=== PATIENT | female | born 1960 | race Hispanic/Latino ===

== ENCOUNTER 2017-08-27 07:32 | Emergency (ER) | payer OTHER ==
[2017-08-27 07:32] VITALS: BMI 34.4
[2017-08-27 07:47] VITALS: BP 159/114; PULSE 80; RESP 17; TEMP 97.5; O2SAT 97
--- NOTE | 2017-08-27 08:38 | ED PDOC ---
Arrival/HPI - General Chief Complaint: Lower Extremity Problem/Injury Time Seen by Provider: 08/27/17 08:19 Historian: Patient - History of Present Illness Narrative History of Present Illness (Text): 08/27/17 08:31 Jeannette Saba is a 56 year old female, whose past medical history includes osteoarthritis, who presents to the emergency department complaining of sudden onset knee pain and diffuse stiffness to left knee while standing at work yesterday. Patient states that she took a dose of Mobic today which brought little relief. Patient notes that she is unable to straighten her leg but denies any direct trauma and any other complaints at this time. Time/Duration: 24 hours Symptom Onset: Gradual Symptom Course: Unchanged Activities at Onset: Light Context: Home Past Medical History - Provider Review Nursing Documentation Reviewed: Yes - Infectious Disease Hx of Infectious Diseases: None - Tetanus Immunization Tetanus Immunization: Unknown - Cardiac Hx Hypertension: Yes - Gastrointestinal Hx Diverticulitis: Yes Hx Gastroesophageal Reflux: Yes - Genitourinary/Gynecological Hx Genitourinary Disorders: No - Psychiatric Hx Psychophysiologic Disorder: No Hx Substance Use: No - Surgical History Hx Cardiac Catheterization: Yes Hx Section: Yes - Anesthesia Hx Anesthesia Reactions: No - Suicidal Assessment Feels Threatened In Home Enviroment: No Family/Social History - Physician Review Nursing Documentation Reviewed: Yes Family/Social History: No Known Family HX Smoking Status: Current Some Days Smoker Hx Alcohol Use: Yes Hx Substance Use: No Hx Substance Use Treatment: No Allergies/Home Meds Allergies/Adverse Reactions: Allergies vioxx Allergy (Uncoded 08/27/17 07:47) ANGIOEDEMA Home Medications: Home Meds Medication Instructions Recorded Confirmed No Known Home Med 08/27/17 08/27/17 Review of Systems - Review of Systems Constitutional: absent: Fevers, Night Sweats Eyes: absent: Vision Changes ENT: absent: Hearing Changes Respiratory: absent: SOB, Cough Cardiovascular: absent: Chest Pain Gastrointestinal: absent: Abdominal Pain Genitourinary Female: absent: Dysuria Musculoskeletal: Other (Left knee pain) Skin: absent: Rash, Pruritis Neurological: absent: Headache Endocrine: absent: Diaphoresis Hemo/Lymphatic: absent: Adenopathy, Easy Bleeding Physical Exam Vital Signs Reviewed: Yes Vital Signs Temp Pulse Resp BP Pulse Ox 08/27/17 07:45 97.5 F L 80 17 159/114 H 97 Blood Pressure: Hypertensive Pulse: Regular Respiratory Rate: Normal - Systems Exam Head: Present: Atraumatic, Normocephalic Pupils: Present: PERRL Extroacular Muscles: Present: EOMI Conjunctiva: Present: Normal Mouth: Present: Moist Mucous Membranes Neck: Present: Normal Range of Motion Respiratory/Chest: Present: Clear to Auscultation, Good Air Exchange. No: Respiratory Distress, Accessory Muscle Use Cardiovascular: Present: Regular Rate and Rhythm, Normal S1, S2. No: Murmurs Abdomen: Present: Normal Bowel Sounds. No: Tenderness, Distention, Peritoneal Signs Back: Present: Normal Inspection Upper Extremity: Present: Normal Inspection. No: Cyanosis, Edema Lower Extremity: Present: Other (Left knee effusion with positive ballottement; ). No: Erythema Neurological: Present: GCS=15, CN II-XII Intact, Speech Normal Skin: Present: Warm, Dry, Normal Color. No: Rashes Psychiatric: Present: Alert, Oriented x 3, Normal Insight, Normal Concentration Medical Decision Making ED Course and Treatment: 08/27/17 08:55 Impression: 56 year old female complaining of sudden onset knee pain and diffuse stiffness to left knee while standing at work yesterday. Differential Diagnosis included but are not limited to: Non-traumatic Knee Effusion, related to arthritis. Plan: -- Perocet -- Left knee x-ray -- Reassess and disposition Prior Visits: Notes and results from previous visits were reviewed. Patient was last seen in the emergency department on [facility] Notes: 08/27/17 10:19 Left knee x-ray: Creator : Veto Elkins MD FINDINGS: BONES:No fracture. JOINTS:Tricompartmental osteoarthritis most severe in the medial joint compartment. No articular erosion. JOINT EFFUSION:None. OTHER FINDINGS:None. IMPRESSION: Tricompartmental osteoarthritis. - Lab Interpretations Lab Results: Lab Results 08/27/17 10:18: Fluid Type Synovial fluid, Synovial WBC 6071.0 H, Synovial RBC 3399.0 H, Synovial Neutrophils 84.2 H, Synovial Lymphocytes 15.8 H, Synov Monos/ Macrophage TEST NOT PERFORMED, Synovial Fluid Comment Sticky fluid - RAD Interpretation Radiology Orders: 08/27/17 08:31 KNEE LEFT 2 VIEWS (AP & LAT) [RAD] Stat - Medication Orders Current Medication Orders: Discontinued Medications Bupivacaine HCl (Marcaine 0.5%) 5 ml IJ STAT STA Stop: 08/27/17 09:13 Last Admin: 08/27/17 09:48 Dose: 5 ml Comments: Given to ED Physician to administer to patient. Methylprednisolone Acetate (Depo-Medrol) 80 mg INJ ONCE ONE Stop: 08/27/17 09:13 Last Admin: 08/27/17 09:48 Dose: 80 mg Comments: Given to ED physician to administer to pt. Oxycodone/Acetaminophen (Percocet 5/325 Mg Tab) 1 tab PO STAT STA Stop: 08/27/17 08:41 Last Admin: 08/27/17 09:10 Dose: Not Given Non-Admin Reason: Patient Refused - Procedure PROCEDURE NOTE (Text): 08/27/17 12:48 aFTER STERILE PREP,l KNEE ASPIRATED OF APPROX 25CC OF STRAW COLORED FLUID.pT GIVEN INTRAARTICULAR DEPOMEDROL AND BUPIVICAINE.fLIUDS SENT FOR ROUTINE STUDIES INCLUDING CRYSTALS Disposition/Present on Arrival - Present on Arrival Any Indicators Present on Arrival: No History of DVT/PE: No History of Uncontrolled Diabetes: No Urinary Catheter: No History of Decub. Ulcer: No History Surgical Site Infection Following: None - Disposition Have Diagnosis and Disposition been Completed?: Yes Diagnosis: Bursitis of left knee Disposition: HOME/ ROUTINE Disposition Time: 11:36 Patient Plan: Discharge Condition: GOOD Discharge Instructions (ExitCare): Knee Bursitis (ED) Print Language: ICELANDIC Referrals: Sandi Meadows, [Primary Care Provider] - Follow up with primary Alma Lao MD [Staff Provider] - Follow up with primary Forms: [employer] (Thai)
[2017-08-27] MEDS ORDERED: Oxycodone/Acetaminophen 5/325 mg Tab PO STA (08:40)
[2017-08-27] MEDS ORDERED: MethylPREDNISolone Depo 80 mg/ml (5 ml) Inj INJ ONE (09:12)
[2017-08-27] MEDS ORDERED: Bupivacaine 0.5% Inj(30mL) IJ STA (09:12)
--- NOTE | 2017-08-27 10:05 | RAD ---
PROCEDURE: Left Knee Radiographs. HISTORY: Pain. COMPARISON: None. FINDINGS: BONES: No fracture. JOINTS: Tricompartmental osteoarthritis most severe in the medial joint compartment. No articular erosion. JOINT EFFUSION: None. OTHER FINDINGS: None. IMPRESSION: Tricompartmental osteoarthritis.
[2017-08-27 10:35] LABS: FLUID TYPE SYNOVIAL FLUID
[2017-08-27 11:28] LABS: SYNOVIAL FLUID LYMPHOCYTE 15.8 % (0-0); SYNOVIAL FLUID NEUTROPHIL 84.2 % (0-0); SYNOVIAL FLUID TOTAL COUNT 100 (0-0)
== END 2017-08-27 11:55 | disposition home or self-care (01) ==
LOC: ED 07:32
DX: M70.52 Other bursitis of knee, left knee (principal); I10 Essential (primary) hypertension
CPT/HCPCS: 20610; 73560; 87070; 89051; 89060; 99284; J1040